=== PATIENT | female | born 1990 | race Two or more races ===

== ENCOUNTER 2023-04-15 11:44 | Emergency (ER) | payer OTHER ==
[~2023-04-15] VITALS: Ht 177.8 cm; Wt 103.9 kg
[2023-04-15] MEDS ORDERED: PRENATA CHEWAB1 EACH PO (12:11)
[2023-04-15 14:32] LABS: HEMATOCRIT 36.9 % (36.0-45.00); HEMOGLOBIN 12.8 g/dL (12.0-15.00); MEAN CELL VOLUME 82.4 fL (80.00-100.00); MEAN CORPUSCULAR HEMOGLOBIN 28.5 pg (27.00-32.0); MEAN CORPUSCULAR HGB CONC 34.6 g/dl (32.0-36.0); PLATELET COUNT 161 K/uL (150-450); RED BLOOD COUNT 4.47 M/uL (4.00-6.00); RED CELL DISTRIBUTION WIDTH 14.6 % (11.5-14.5)
[2023-04-15 14:48] LABS: CALCIUM 9.2 mg/dL (8.5-10.1); CREATININE SERUM 0.6 mg/dL (0.55-1.02); GFR 116.6; POTASSIUM 3.47 mEq/L (3.5-5.1)
[2023-04-15 18:07] LABS: URINE APPEARANCE Clear; URINE BILIRRUBIN Small (NEGATIVE); URINE BLOOD Negative; URINE COLOR Dark Yellow; URINE GLUCOSE Negative (NEGATIVE); URINE LEUKOCYTE Negative; URINE NITRATE Negative; URINE PROTEIN 30 (NEGATIVE)
[2023-04-15 18:12] LABS: URINE BACTERIA 1273.8 uL (0.0-1933); URINE EPITHELIAL CELLS 27.1 uL (0.0-38.8); URINE RBC 13.2 uL (0.0-20.8); URINE WBC 12.6 uL (0.0-23.2)
== END 2023-04-15 20:08 | disposition home or self-care (01) ==
LOC: ER 11:45
PROVIDERS: General Practice
DX: O99.612 Diseases of the digestive system complicating pregnancy, second trimester (principal); K92.89 Other specified diseases of the digestive system; Z3A.14 14 weeks gestation of pregnancy; K52.89 Other specified noninfective gastroenteritis and colitis; K29.70 Gastritis, unspecified, without bleeding